=== PATIENT | male | born 1965 | race Caucasian/White ===

== ENCOUNTER 2021-12-26 16:20 | Emergency (ER) | payer OTHER ==
[2021-12-26 16:38] LABS: BASO # 0.1 10*3/uL (0.0-0.1); BASO % 0.7 % (0.0-1.0); EOS # 0.1 10*3/uL (0.0-0.4); EOS % 0.7 % (1.0-4.0); LYMPH # 3.4 10*3/uL (1.3-4.4); LYMPH % 33.9 % (27.0-41.0); MEAN CELL VOLUME 88.5 fl (80.0-94.0); MEAN CORPUSCULAR HGB 29.8 pg (27.0-31.0); MEAN CORPUSCULAR HGB CONC 33.7 g/dl (33.0-37.0); MEAN PLATELET VOLUME 9.6 fl (9.6-12.3); MONO # 0.6 10*3/uL (0.1-1.0); MONO % 6.3 % (3.0-9.0); NEUT # 5.9 10*3/uL (2.3-7.9); NEUT % 57.9 % (47.0-73.0); PLATELET COUNT AUTOMATED 258 10*3/uL (130-400); RED BLOOD COUNT 4.86 10*6/uL (4.50-5.90); RED CELL DISTRI WIDTH 11.9 % (0-14.5); WHITE BLOOD COUNT 10.1 10*3/uL (4.8-10.8)
[2021-12-26 16:52] LABS: ALKALINE PHOSPHATASE 84 U/L (45-117); BUN 17 mg/dl (7-24); CHLORIDE 107 mmol/L (98-107); CREATININE 0.87 mg/dL (0.70-1.30); POTASSIUM 3.9 mmol/L (3.5-5.1); SGOT/AST 29 IU/L (3-35); SGPT/ALT 71 U/L (12-78); SODIUM 138 mmol/L (136-145); TOTAL PROTEIN 7.8 gm/dL (6.4-8.2)
== END 2021-12-27 00:21 | disposition left against medical advice (07) ==
LOC: ED 16:20
PROVIDERS: Nurse Practitioner Family
DX: F10.129 Alcohol abuse with intoxication, unspecified (principal); R73.9 Hyperglycemia, unspecified; Y90.9 Presence of alcohol in blood, level not specified